=== PATIENT | male | born 1990 | race American Indian/Alaskan Native ===

== ENCOUNTER 2019-05-16 06:09 | Emergency (ER) | payer SELFPAY ==
[2019-05-16 06:14] VITALS: BP 123/84
--- NOTE | 2019-05-16 06:54 | Emergency Department Report ---
Chief Complaint: Dental/Oral Stated Complaint: TOOTHACHE Time Seen by Provider: 05/16/19 06:46 - HPI History of Present Illness: 28-year-old -Mex[place] male presents to the emergency room complaining of the tooth ache x2 weeks. Patient states that he has been taking ibuprofen and Orajel and been gargling with peroxide. Patient denies any fever chills. - Exam Vital Signs: Vital Signs 05/16/19 06:12 Temperature 98.4 F Pulse Rate 72 Respiratory 18 Rate Blood Pressure 123/84 O2 Sat by Pulse 100 Oximetry Physical Exam: Gen: alert oriented NAD HEENT: Oral mucosa is moist, tooth #4 is absent there is no gingiva enlargement nonerythematous no discharge coming from the gum. There is no facial or jaw swelling. Patient is able to swallow without difficulty Patient is ambulatory without difficulty MSE screening note: Focused history and physical exam performed. Due to findings the following was ordered: 28-year-old -Mexican male presents to the emergency room complaining of the tooth ache x2 weeks. Patient states that he has been taking ibuprofen and Orajel and been gargling with peroxide. Patient denies any fever chills. Please follow-up at a dentist as this appears to be a oral surgical issue. I recommend few community dentist I will list them below in your discharge summary. ED Disposition for MSE Clinical Impression: Tooth ache Disposition: Z-07 MED SCREENING EXAM-LEFT Is pt being admited?: No Does the pt Need Aspirin: No Condition: Stable Additional Instructions: Please follow-up at a dentist as this appears to be a oral surgical issue. I recommend few community dentist I will list them below in your discharge summary. Referrals: [facility] [Outside] - 3-5 Days [facility] [Outside] - 3-[address] [facility] [Outside] - 3-5 Days [facility] [Provider Group] - 3-5 Days Forms: Work/School Release Form(ED)
== END 2019-05-16 06:59 | disposition left against medical advice (07) ==
LOC: ED 06:09
DX: K08.89 Other specified disorders of teeth and supporting structures (principal)
CPT/HCPCS: 99281